=== PATIENT | male | born 1985 | race Caucasian/White ===

== ENCOUNTER 2017-11-28 09:02 | Emergency (ER) | payer BC ==
[~2017-11-28] VITALS: Ht 177.8 cm; Wt 104.5 kg
[2017-11-28 11:27] LABS: HEMATOCRIT 41.9 % (38.0-50.0); HEMOGLOBIN 14.4 G/DL (12.5-16.6); MCH 29.5 PG (29.0-34.0); MCHC 34.4 G/DL (30.0-36.0); MCV 85.9 FL (86-99); PLATELET COUNT 217 K/uL (156-360); RBC DIS.WIDTH-SD 37.6 % (39-53); RED BLOOD COUNT 4.88 M/uL (4.00-5.50); WHITE BLOOD COUNT 16.2 K/uL (4.1-10.2)
[2017-11-28 11:35] LABS: ALBUMIN 4.3 g/dL (3.2-4.8); CHLORIDE 105 mEq/L (99-109); POTASSIUM 4.1 mEq/L (3.7-5.4); SODIUM 139 mEq/L (136-147)
[2017-11-28 11:37] LABS: GLUCOSE 100 mg/dL (70-99); TOTAL PROTEIN 7.4 g/dL (6.4-8.3)
[2017-11-28 11:39] LABS: TOTAL BILIRUBIN 0.8 mg/dL (0.0-1.0)
[2017-11-28 11:41] LABS: ALKALINE PHOSPHATASE 57 IU/L (3-129)
[2017-11-28 11:42] LABS: UREA NITROGEN (BUN) 14 mg/dL (9-23)
[2017-11-28 11:43] LABS: AST (GOT) 15 IU/L (2-34); GFR ESTIMATE (CALCULATED) > 59 mL/min/ (58.99-99999)
[2017-11-28 11:44] LABS: ALT (GPT) 23 IU/L (3-49); CREATINE KINASE 72 IU/L (1-294)
[2017-11-28 13:28] LABS: APPEARANCE SL.HAZY ((CLEAR)); BILIRUBIN NEGATIVE; BLOOD SMALL; COLOR YELLOW ((YELLOW)); GLUCOSE (STRIP) NEGATIVE; KETONES NEGATIVE; LEUKOCYTES LARGE; NITRITE NEGATIVE; PROTEIN (STRIP) 30; SPECIFIC GRAVITY 1.014 (1.000-1.030); UROBILINOGEN 0.2 MG/DL (0.2-1.0)
[2017-11-28 13:32] LABS: BACTERIA RARE /HPF; EPITHELIAL CELLS NONE SEEN /HPF; MUCUS TRACE /LPF; WHITE BLOOD CELLS TNTC /HPF (0-5)
[2017-11-28] MEDS ORDERED: BACTRIM,SEPT1 TABLET PO ×2 (14:19→14:22)
[2017-11-28 14:39] VITALS: BP 117/71
== END 2017-11-28 14:43 | disposition home or self-care (01) ==
LOC: EME 09:02
PROVIDERS: Physician Assistant
DX: N39.0 Urinary tract infection, site not specified (principal); Z88.0 Allergy status to penicillin
CPT/HCPCS: 80053; 81003; 82550; 85027; 99281; 99285; J0780; J1885; J7030